=== PATIENT | male | born 1980 | race Caucasian/White ===

== ENCOUNTER 2019-07-06 11:34 | Emergency (ER) | payer OTHER ==
[2019-07-06 11:50] VITALS: BP 128/73
--- NOTE | 2019-07-06 12:10 | ED Physician Documentation ---
History of Present Illness - Stated complaint Stated Complaint: MED REFILL - Chief complaint Chief Complaint: General - History obtained from History obtained from: Patient - History of Present Illness Timing: Today Pain level max: 0 Pain level now: 0 - Additonal information Additional information: Patient is out of his genvoya. Requesting refill. No other complaints. Review of Systems Constitutional: denies: Fever Skin: denies: Rash PD PAST MEDICAL HISTORY - Past Medical History Past Medical History: No - Past Surgical History Past Surgical History: No - Present Medications Home Medications: Ambulatory Orders Medication Instructions Recorded Confirmed Elviteg/Cob/Emtri/Tenof Alafen 1 tab PO DAILY #30 tablet 07/06/19 [Genvoya Tablet] - Allergies Allergies/Adverse Reactions: Allergies Allergy/AdvReac Type Severity Reaction Status Date / Time No Known Drug Allergies Allergy Verified 07/06/19 11:50 - Living Situation Living Situation: reports: With family Living Arrangement: reports: At home - Social History Does the pt have substance abuse?: No - Family History Family history: reports: Non contributory PD ED PE NORMAL - Vitals Vital signs reviewed: Yes - General General: Alert and oriented X 3, No acute distress - HEENT HEENT: Moist mucous membranes - Neck Neck: Supple, no meningeal sign - Respiratory Respiratory: No respiratory distress - Derm Derm: Warm and dry - Neuro Neuro: Alert and oriented X 3 Results - Vitals Vitals: Vital Signs - 24 hr 07/06/19 11:45 Temperature 36.5 C Heart Rate 84 Respiratory 15 Rate Blood Pressure 128/73 O2 Saturation 97 Oxygen O2 Source Room air PD MEDICAL DECISION MAKING - ED course Complexity details: considered differential, d/w patient ED course: medication refilled. no other complaints. Departure - Departure Disposition: 01 Home, Self Care Clinical Impression: Medication refill Condition: Good Follow-Up: LOLA MANNING MD [Primary Care Provider] - Within 1 week Prescriptions: Elviteg/Cob/Emtri/Tenof Alafen [Genvoya Tablet] 1 tab PO DAILY #30 tablet Comments: Follow-up with your doctor for further medication refills. Return if you worsen .
== END 2019-07-06 12:15 | disposition home or self-care (01) ==
LOC: ED 11:34
DX: Z76.0 Encounter for issue of repeat prescription (principal)
CPT/HCPCS: 99281

== ENCOUNTER 2020-05-29 08:08 | Outpatient (CLI) | payer OTHER ==
[2020-05-29 09:02] VITALS: BP 129/90
--- NOTE | 2020-05-29 09:02 | SLEEP CARE CONSULTATION ---
Information from patient questionnaire entered by Hilaria Monson. I have reviewed and concur with the information entered by Hilaria Monson. This document represents the service I personally performed and the decisions made by me, Analisa Cardenas ARNP. History of Present Illness Service Date and Time: 05/29/2020 0808 Reason for Visit: New patient Chief Complaint: reports: Unrefreshed sleep, Snoring, Excessive daytime sleepiness, Observed pauses in breathing, Fatigue, Frequent awakenings at night. denies: Insomnia Date of Onset: 24 years Usual bedtime: 2100 Time it takes to fall asleep: 5-10 minutes Snores at night: Yes Observed to quit breathing while asleep: Yes Sleeps alone due to snoring: Yes Number of times waking at night: 3-6 Reasons for waking at night: reports: Choking (infrequent), Snoring, Gasping for air (nightly), Other (awaking with the feeling of "impending doom" nightly) Toss, Turn, or Twitch while sleeping: Yes ("flailing arms" every night) Recalls having dreams: No Usually gets out of bed at: 0700 Feels refreshed in the morning: No Morning headache: Yes (every other day; last an hour without meds) Sleepy or fatigued during the day: Yes Ever fallen asleep while driving: No (drowsy driving; falls asleep as passenger in car) Takes day naps: Yes (twice a week during workweek and on weekends) Dreams during day naps: No Prior sleep studies: Yes Year and Where: 2014 [place], [place] Additional HPI information: I had the pleasure of seeing XI PIKE today regarding the possibility of him having a sleep disorder. His current complaints are snoring, observed pauses in breathing, unrefreshed sleep and fatigue. His previous [facility] ([facility]) showed that he had primary snoring but he slept much better that same night than he had before the night of study. He had a UPPP in 2005 and it worked well for 6 months, he stopped snoring and was sleeping well. Then he started snoring again. His mother has sleep apnea and a younger sister snores. He does not wake refreshed in the morning and every other morning he wakens with a headache that resolves in an hour without medication. He states his cannot sleep in the same bed due to his loud snoring and he has told him he "flails" his arms around hitting him during the night just about every night. He has woken up snoring and gasping for breath nightly. He has occasionally woken up choking. He sleeps from 9 PM to 7 AM nearly every night, including weekends with 3-6 nightly awakenings. - Parasomnia Symptoms Ever been unable to move upon waking from sleep: No Walks in sleep: No Talks in sleep: No Ever acted out dreams in sleep: No (Flails arms during sleep; does not remember dreaming) Ever felt weak in the knees when startled or emotional: No (easily startled if not resting well) Bothered by creepy, crawly, restless sensations in legs: Yes (right leg mostly, only on nights cannot fall asleep in 5-10 minutes; 1 wk) Problems with memory or concentration: Yes (memory and some concentration) Subjective Initial [place] Sleepiness Scale score: 19 (in 2019) Past Medical History Past Medical History: reports: Other (PTSD). 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 Patient is Single and lives in [place]. Have you smoked in the past 12 months: Yes Cigarettes per day (20/pack): 2 (1 pack/week) Alcohol use: Yes Alcohol amount and frequency: 2-3 drinks every other day Caffeine use: Yes Caffeine amount and frequency: 2 cups coffee in morning Family History Family history of sleep disordered breathing: Yes Family Hx Sleep Apnea: Mother: Sleep apnea - Treated, Sibling: Snoring Allergies and Home Medications Drug allergies reviewed: Yes (NKDA) Home medication list reviewed: Yes Allergy and home medication list: Lexapro (generic) Lianna MVT for men daily Review of Systems Weight gain over past 5 years: 20 Cardiovascular: denies: high blood pressure, palpitations, chest pain, irregular heart rate or pulse, leg or foot swelling Respiratory: denies: shortness of breath, chronic cough Gastrointestinal: reports: heartburn. denies: difficulty swallowing Urinary: denies: impotence Neurological: reports: headaches. denies: seizure, head trauma, speech dysfunction, gait or balance problems Psychiatric: denies: Attention Deficit Hyperactivity, anxiety, depression, mood disorder, claustrophobia Ear/Nose/Throat: reports: nasal congestion, dry mouth/throat (daily due to mouth breathing at night), tonsillectomy, wisdom teeth removed (has top left, others gone). denies: sinus problems, nose bleeds, injury to nose Endocrine: denies: thyroid disease Musculoskeletal: denies: joint pain, muscle pain or cramping, mobility problems Immunologic: reports: allergies to food or environment (seasonal) Physical Exam Blood Pressure: 129/90 Cuff size: long Heart Rate: 67 O2 Saturation: 99 Height: 6 ft 1 in Weight: 230 lb Body Mass Index: 30.3 BMI Classification: Obese Neck circumference: 15.25 (inches) HEENT: No craniofacial malformation Nostrils: patent to airflow Turbinates: normal Septum: midline Mouth and throat: narrow oropharynx Soft palate: normal Hard palate: normal Uvula: normal Uvula visualization: 50% Mallampati Class II Tongue: normal in size Tonsils: absent bilaterally (UPPP 2005) Chin and jaw: normal size and position Neck: normal w/o lymphadenopathy or thyromegaly Heart: regular rate and rhythm Lungs: clear bilaterally Impression and Plan 1. Suspected Obstructive Sleep Apnea-Hypopnea Syndrome, as suggested by a history of loud and irregular snoring, observed cessation of breath while asleep, gasping or choking in sleep, morning headache, frequent awakening during the night, unrefreshed sleep, cognitive impairment, and excessive daytime sleepiness. He has a history of a previous sleep study that found he has primary snoring and he has a UPPP surgery in 2005 that did reduce his snoring for 6 months. He has gained weight since the surgery. I discussed with the patient that a narrow oropharynx and obesity are common predisposing factors for obstructive sleep apnea-hypopnea syndrome. I recommend proceeding to polysomnography to confirm the diagnosis and to assess severity. If the patient has significant sleep disordered breathing, a manual CPAP titration study will also be performed to find the optimal treatment pressure. I informed the patient of what the sleep studies involve and after some discussion, obtained agreement to proceed. The pathophysiology of obstructive sleep apnea-hypopnea syndrome was discussed with the patient and health risks of cardiovascular and cerebrovascular disease if not treated. AAS brochure for obstructive sleep apnea-hypopnea syndrome given and reviewed. Risks of drowsy driving discussed in detail and patient advised to avoid long distance driving and to mold puller at the first sign of drowsiness. Patient agreed to plan. [facility] drowsy driving brochure given. * Schedule polysomnography +- manual CPAP titration study. * Avoid long distance driving or driving when feeling sleepy. * Avoid alcohol, sedative and muscle relaxant around bedtime. * Attempt to lose weight. * Review instructions provided by trained office staff on how to prepare for the sleep study. * Return for follow-up after sleep study completed. Visit Type: In Office Time Spent with Patient (minutes): 37 Provider Statement: I spent 100% of the Face to Face Visit with the patient with greater than 50% spent counseling the patient and coordination of care.
== END 2020-05-29 08:09 | disposition home or self-care (01) ==
LOC: SC 08:08
PROVIDERS: ATTEND Nurse Practitioner Family
DX: R06.83 Snoring (principal); G47.10 Hypersomnia, unspecified; R53.83 Other fatigue; G47.8 Other sleep disorders; R06.81 Apnea, not elsewhere classified; E66.9 Obesity, unspecified; Z68.30 Body mass index [BMI] 30.0-30.9, adult; F17.210 Nicotine dependence, cigarettes, uncomplicated
CPT/HCPCS: 99204; 99212

== ENCOUNTER 2020-06-27 20:30 | Outpatient (CLI) | payer OTHER | END 2020-06-27 20:31 | disposition home or self-care (01) | LOC: SC 20:30 | PROVIDERS: ATTEND Nurse Practitioner Family | DX: G47.33 Obstructive sleep apnea (adult) (pediatric) (principal); G47.61 Periodic limb movement disorder; E66.3 Overweight; Z68.30 Body mass index [BMI] 30.0-30.9, adult | CPT/HCPCS: 95810 ==

== ENCOUNTER 2020-07-07 07:59 | Outpatient (CLI) | payer OTHER ==
--- NOTE | 2020-07-07 08:25 | SLEEP CARE CONSULTATION ---
Information from patient questionnaire entered by Hilaria Monson. I have reviewed and concur with the information entered by Hilaria Monson. This document represents the service I personally performed and the decisions made by me, Analisa Cardenas ARNP. History of Present Illness Service Date and Time: 07/07/2020 0759 Initial [place] Sleepiness Scale score: 19 Current [place] Sleepiness Scale score: 17 Additional HPI information: XI PIKE returns for follow up and results of the recently performed polysomnography. I explained the pathophysiology behind obstructive sleep apnea. We then spent quite a bit of time discussing different treatment options. For mild obstructive sleep apnea, surgery and oral appliance are alternatives to nasal CPAP therapy but in moderate or severe cases, nasal CPAP is the most effective and reliable treatment. After some discussion, the patient opted to go with the nasal CPAP therapy. Nasal autoCPAP set at 4-15 cmH20 will be ordered with rationale explained. A manual titration study will be ordered if unable to find optimal pressure with office adjustments. I explained how CPAP machine works with sample devices [employer] Dreamstation and [employer] (Astilbe) [id number] and what to expect when using the machine. Using CPAP every night in order to get used to it was emphasized. Patient advised to put CPAP mask on before getting into bed so as not to fall asleep without CPAP. To assist acclimation to CPAP use, it could also be used for a short time during day while reading or watching TV. The patient was instructed to call the CPAP supplier to discuss any mechanical problem that may occur. If the mask given is uncomfortable or is difficult to keep on through the night even with adjustment, contact the CPAP supplier as many will replace with another mask style if notified before 30 days. If snoring or perceives is not getting enough air or too much air from the machine, notify this office. Patient counseled not drink alcohol less than 4 hours before bedtime as it can increase snoring and apnea. Patient was cautioned about risks of drowsy driving until sleepiness symptoms resolve. Sleep Study - Results Type of Sleep Study: Polysomnography Prior sleep studies: Yes Year and Where: 2014 [place], [place] Polysomnography/Home Sleep Study results: IMPRESSION: The quality of the study is good. The patient had normal sleep efficiency. The sleep architecture was abnormal for sleep fragmentation and lack of slow wave sleep (N3). Respiratory monitoring showed severe obstructive sleep apnea-hypopnea (AHI = 38.3) associated with frequent arousals, oxyhemoglobin desaturation and mild hypoxia (laquita oxygen saturation of 84%). The respiratory events occurred more frequently during supine sleep (supine AHI = 64.6; non-supine = 29.59). Snore was loud in intensity. There was moderate periodic leg movement of sleep not contributing to the sleep fragmentation. Cardiac rhythm was normal sinus rhythm without significant arrhythmia. No abnormal behavior (parasomnia) observed during the night. Allergies and Home Medications Drug allergies reviewed: Yes (NKDA) Home medication list reviewed: Yes (no changes) Review of Systems Review of systems same as previous: Yes (no changes) Physical Exam Heart Rate: 73 O2 Saturation: 98 Height: 6 ft 1 in Weight: 230 lb Body Mass Index: 30.3 BMI Classification: Obese Impression and Plan 1. Obstructive Sleep Apnea-Hypopnea Syndrome, severe, with lowest oxygen saturation of 84%. Obviously this is the cause of the patients symptoms of unrefreshed sleep, and excessive daytime sleepiness. Positive pressure therapy could benefit his overall health and reduce risks of cardiovascular or cerebrovascular events. As mentioned above, the patient will be started on nasal autoCPAP therapy with pressure set at 4-15 cmH2O. A manual titration study will be completed if unable to find optimal treatment pressure with office adjustments. Compliance guidelines also reviewed. A copy of compliance guidelines will be given for reference at check out. Because the apnea is more severe supine, I instructed to avoid sleeping supine using pillow positioning until able to start CPAP use. * Nasal auto CPAP therapy, pressure at 4-15 cm H2O. * Attempt to lose weight. * Avoid alcohol consumption near bedtime. * Avoid supine sleep until using CPAP. * The patient is again cautioned about driving until sleepiness completely resolves. * Return one month after CPAP obtained. I will assess response to therapy and compliance at that time. Visit Type: In Office Time Spent with Patient (minutes): 23 Provider Statement: I spent 100% of the Face to Face Visit with the patient with greater than 50% spent counseling the patient and coordination of care.
== END 2020-07-07 08:00 | disposition home or self-care (01) ==
LOC: SC 07:59
PROVIDERS: ATTEND Nurse Practitioner Family
DX: G47.33 Obstructive sleep apnea (adult) (pediatric) (principal); E66.9 Obesity, unspecified; Z68.30 Body mass index [BMI] 30.0-30.9, adult
CPT/HCPCS: 99212; 99213